=== PATIENT | female | born 1955 | race Caucasian/White ===

== ENCOUNTER → 2016-11-29 | Outpatient (CLI) | payer BC ==
[~2016-11-29] MED LIST: ATOR40TA; CITA10TA; EXEN10PE4; MTF500T
--- OUTSIDE RECORDS SUMMARY | 2016-11-29 12:40 | XMS REPORT | Continuity of Care Document ---
Author Author [facility] Organization [facility] Address Unknown Phone Unavailable Allergies Active Description Code Type Severity Reaction Onset Reported/Identified Relationship to Patient Clinical Status Yes codeine [id number] Drug Allergy Mild N/A 08/16/2009 Yes [id number] (SULFA (SULFONAMIDE ANTIBIOTICS)) [id number] (SULFA (SULFONAMIDE ANTIBIOTICS)) Mild N/A 08/16/2009 Yes hydrocodone [id number] Drug Allergy Mild N/A 08/16/2009 Yes Penicillins [id number] Drug Allergy Mild N/A 08/16/2009 Yes codeine codeine Drug Allergy Severe HIVES/ THROAT SWELLS SHUT 03/10/2015 Yes Penicillins Penicillins Drug Allergy Severe HIVES /THROAT SWELLS SHUT 03/10/2015 Yes Sulfa (Sulfonamide Antibiotics) Sulfa (Sulfonamide Antibiotics) Drug Allergy Severe HIVES /THROAT SWELLS SHUT 03/10/2015 Medications Problems Date Dx Coded Attending Type Code Diagnosis Diagnosed By 03/11/2015 LARY CHAIDEZ, CARMELO Bowie Ot 530.81 03/11/2015 LARY CHAIDEZ, CARMELO Bowie Ot 787.20 03/18/2015 LARY CHAIDEZ, CARMELO Bowie Ot 530.81 03/18/2015 LARY CHAIDEZ, CARMELO Bowie Ot 787.20 Procedures Code Description Performed By Performed On 17.42 LAPAROSCOPIC ROBOTIC ASSISTED PROCEDURE 03/14/2015 44.67 LAP PROCS FOR CREATION OF ESOPHAGOGASTRIC SPHINCT 03/14/2015 53.71 LAPAROSCOPIC REPAIR OF DIAPHRAGMATIC HRN, ABDOMINA 03/14/2015 Results Test Result Range GLUCOSE (POC) - 03/14/15 10:31 GLUCOSE (POC) 108 mg/dL 70-99 HEMOGLOBIN - 03/14/15 10:36 MEAN CELL VOLUME 89.6 fl 80.0-100.0 HEMOGLOBIN 12.5 gm/dL 12.0-16.0 METABOLIC PANEL, BASIC - 03/14/15 10:36 POTASSIUM 4.1 mmol/L 3.5-5.3 EST GFR (MDRD) > 60 mL/min > 59 ANION GAP 6 mmol/L 5-15 EST CrCl (CG) > 60 mL/min > 59 GLUCOSE 105 mg/dL 70-99 CALCIUM 8.9 mg/dL 8.5-10.1 BLOOD UREA NITROGEN 10 mg/dL 7-20 CREATININE 0.9 mg/dL 0.6-1.0 SODIUM 142 mmol/L 135-148 CHLORIDE 109 mmol/L 98-110 CARBON DIOXIDE 27 mmol/L 21-32 GLUCOSE (POC) - 03/14/15 17:18 GLUCOSE (POC) 133 mg/dL 70-99 GLUCOSE (POC) - 03/15/15 01:00 GLUCOSE (POC) 122 mg/dL 70-99 CBC - 03/15/15 05:14 MEAN CELL HGB 29.8 pg 27.0-33.0 MEAN CELL HGB CONCENTRATION 33.3 g/dL 32.0-37.0 MEAN CELL VOLUME 89.5 fl 80.0-100.0 RED BLOOD CELL 3.99 m/cumm 4.00-6.00 RED CELL DISTRIBUTION WIDTH 13.5 % 11.0- 15.6 WHITE BLOOD CELL 11.2 k/cumm 5.0-10.0 HEMOGLOBIN 11.9 gm/dL 12.0-16.0 HEMATOCRIT 35.7 % 37.0-47.0 PLATELET COUNT 207 k/cumm 150-400 RENAL FUNCTION PANEL - 03/15/15 05:14 POTASSIUM 3.9 mmol/L 3.5-5.3 EST GFR (MDRD) > 60 mL/min > 59 ANION GAP 7 mmol/L 5-15 EST CrCl (CG) > 60 mL/min > 59 GLUCOSE 135 mg/dL 70-99 CALCIUM 8.2 mg/dL 8.5-10.1 BLOOD UREA NITROGEN 9 mg/dL 7-20 CREATININE 0.8 mg/dL 0.6-1.0 SODIUM 140 mmol/L 135-148 CHLORIDE 105 mmol/L 98-110 CARBON DIOXIDE 28 mmol/L 21-32 ALBUMIN 3.0 gm/dL 3.4-5.0 PHOSPHORUS 3.4 mg/dL 2.5-4.9 GLUCOSE (POC) - 03/15/15 06:39 GLUCOSE (POC) 131 mg/dL 70-99 GLUCOSE (POC) - 03/15/15 11:41 GLUCOSE (POC) 119 mg/dL 70-99 GLUCOSE (POC) - 03/15/15 17:33 GLUCOSE (POC) 125 mg/dL 70-99 GLUCOSE (POC) - 03/16/15 06:26 GLUCOSE (POC) 137 mg/dL 70-99 CBC - 03/16/15 07:23 MEAN CELL HGB 29.2 pg 27.0-33.0 MEAN CELL HGB CONCENTRATION 32.3 g/dL 32.0-37.0 MEAN CELL VOLUME 90.3 fl 80.0-100.0 RED BLOOD CELL 3.60 m/cumm 4.00-6.00 RED CELL DISTRIBUTION WIDTH 13.6 % 11.0- 15.6 WHITE BLOOD CELL 7.3 k/cumm 5.0-10.0 HEMOGLOBIN 10.5 gm/dL 12.0-16.0 HEMATOCRIT 32.5 % 37.0-47.0 PLATELET COUNT 196 k/cumm 150-400 RENAL FUNCTION PANEL - 03/16/15 07:23 POTASSIUM 3.9 mmol/L 3.5-5.3 EST GFR (MDRD) > 60 mL/min > 59 ANION GAP 5 mmol/L 5-15 EST CrCl (CG) > 60 mL/min > 59 GLUCOSE 118 mg/dL 70-99 CALCIUM 7.9 mg/dL 8.5-10.1 BLOOD UREA NITROGEN 8 mg/dL 7-20 CREATININE 0.7 mg/dL 0.6-1.0 SODIUM 140 mmol/L 135-148 CHLORIDE 103 mmol/L 98-110 CARBON DIOXIDE 32 mmol/L 21-32 ALBUMIN 2.7 gm/dL 3.4-5.0 PHOSPHORUS 2.8 mg/dL 2.5-4.9 GLUCOSE (POC) - 03/16/15 11:35 GLUCOSE (POC) 100 mg/dL 70-99 GLUCOSE (POC) - 03/16/15 17:45 GLUCOSE (POC) 129 mg/dL 70-99 GLUCOSE (POC) - 03/17/15 05:49 GLUCOSE (POC) 129 mg/dL 70-99 GLUCOSE (POC) - 03/17/15 12:52 GLUCOSE (POC) 91 mg/dL 70-99 Encounters ACCT No. Visit Date/Time Discharge Status Pt. Type Provider Facility Loc./Unit Complaint [id number] 03/04/2015 10:20:00 2014 23:59:59 CLS Outpatient LARY CHAIDEZ, CARMELO B [facility] RAD [id number] 03/29/2014 10:10:00 2013 23:59:59 CLS Outpatient
--- NOTE | 2016-11-30 19:41 | Diagnostic Imaging Report ---
INDICATION: Digital mammogram bilateral screening. This study was compared to the prior exam of 03/29/14 and 09/11/10. At this time, there are no current complaints. The current study was also evaluated with a Computer Aided Detection (CAD) system. FINDINGS: There are scattered fibroglandular densities in both breasts which could obscure a lesion. Overall, there does not appear to have been any significant change when compared to the prior exam. No primary or secondary sign of malignancy Is noted. IMPRESSION: 1. There is no evidence of malignancy. 2. The patient should have her annual bilateral screening mammogram on schedule in November of 2017. ACR BI-RADS Category 1: Negative. Result letter will be mailed to the patient. Note: At least 10% of breast cancer is not imaged by mammography. Dictated by: Dictated on workstation # [id number]
== END ==
LOC: RAD 12:37
PROVIDERS: ATTEND Nurse Practitioner Family
DX: Z12.31 Encounter for screening mammogram for malignant neoplasm of breast (principal)
CPT/HCPCS: 77067

== ENCOUNTER 2017-09-30 09:32 | Emergency (ER) | payer BC ==
[~2017-09-30] VITALS: Ht 154.9 cm; Wt 86.2 kg
[2017-09-30] MEDS ORDERED: CIPR500T4 (09:59)
[2017-09-30] MEDS ORDERED: PHEN37.53 (09:59)
[2017-09-30] MEDS ORDERED: LACTATED RINGERS 1,000 ML IV ONE (10:28)
[2017-09-30] MEDS ORDERED: KETOROLAC 30 MG/ML VIAL IVP ONE (10:30)
[2017-09-30] MEDS ORDERED: ONDANSETRON 4 MG (ZOFRAN) ORAL DISSOLVE TAB PO ONE (10:30)
--- NOTE | 2017-09-30 10:37 | ED General ---
General Chief Complaint: Cough/Cold/Flu Symptoms Stated Complaint: FLU SYMPTOMS Nursing Triage Note: TO ROOM PER W/C REPORTS THAT LAST WEEK HAD VOMITING SAW AT [facility] WAS GIVEN MEDS THAT IS BETTER NOW. ON FRI STARTED WITH FLU SYMPTOMS. Nursing Sepsis Screen: No Definite Risk (HE [employer]Z MEDICAL STUDENT) History of Present Illness Time Seen by Provider: 10:34 Initial Comments Pt is a 62 yo female with PMH of DM who c/o URI sx for the past 7 days. Pt states she has had intermittent episodes of fevers, chills, n/v/d, R earache, congestion, sore throat, and overall body aches. Pt has tried Aleve for her pain but that has not helped and hasn't been able to eat or drink much in the past few days. Pt denies receiving a Flu Shot this year. Pt saw her PCP last week and was told she may have a UTI and was given Cipro that she has been taking for the past 4 days. Pt denies any blood in stool or vomit, CP, SOB. (HE [employer]UDENT) Allergies and Home Medications Allergies Coded Allergies: Codeine (Unverified Allergy, Mild, 08/16/09) Hydrocodone (Unverified Allergy, Mild, 08/16/09) Penicillins (Unverified Allergy, Mild, 08/16/09) Uncoded Allergies: [id number] (SULFA (SULFONAMIDE ANTIBIOTICS)) (Allergy, Mild, 08/16/09) Home Medications Atorvastatin Calcium 40 Mg Tablet, (Reported) Ciprofloxacin HCl 500 Mg Tablet, (Reported) Citalopram Hydrobromide 10 Mg Tablet, (Reported) Exenatide 10 Mcg/0.04 Pen.injctr, (Reported) Metformin Hcl 500 Mg Tablet, (Reported) Phentermine HCl 37.5 Mg Tablet, (Reported) Constitutional: chills, diaphoresis, fever, malaise EENTM: ear pain (R), nose congestion, throat pain Respiratory: cough, No hemoptysis, phlegm, No short of breath, No wheezing Cardiovascular: no symptoms reported, No chest pain, No edema, No palpitations Gastrointestinal: abdominal pain (diffuse) Genitourinary: decreased output, No hematuria, No hesitancy Musculoskeletal: no symptoms reported Skin: no symptoms reported Psychiatric/Neurological: No Symptoms Reported Hematologic/Lymphatic: No Symptoms Reported Immunological/Allergic: no symptoms reported ([employer]UDENT) All Other Systems Reviewed Negative Unless Noted: Yes (Negative excepted noted.) (HE [employer] MEDICAL STUDENT) Past Hybvnju-Ianiyx-Kmvegw Hx Patient Social History Alcohol Use: Denies Use Recreational Drug Use: No Smoking Status: Never a Smoker Recent Foreign Travel: No Contact w/Someone Who Travel: No Recent Infectious Disease Expo: No (HE [employer] MEDICAL STUDENT) Surgeries History of Surgeries: No Surgeries: Gallbladder (HE [employer] MEDICAL STUDENT) Cardiovascular History of Cardiac Disorders: No (HE [employer]ICAL STUDENT) Musculoskeletal History of Musculoskeletal Dis: No (HE [employer] STUDENT) Endocrine History of Endocrine Disorders: Yes Endocrine Disorders: Diabetes, Non-Insulin dep ([employer]UDENT) Physical Exam Vital Signs Vital Sign - Last 12Hours 09/30/17 09:49 Temp 100.4 Pulse 100 B/P (MAP) 150/89 (109) Pulse Ox 98 O2 Delivery Room Air (NICK ALBARADO) Vital Signs Capillary Refill : Less Than 3 Seconds (HE [employer] STUDENT) General Appearance: Other (Ill in appearance, tearful) HEENT: PERRL/EOMI, Pharyngeal Erythema, TM Abnormal (R), Other (Dry mucous membranes) Neck: Supple, Lymphadenopathy (L), Lymphadenopathy (R) Respiratory: Lungs Clear, Normal Breath Sounds, No Accessory Muscle Use Cardiovascular: Regular Rate, Rhythm, No Edema, No Murmur Gastrointestinal: Normal Bowel Sounds, No Organomegaly, Soft, Tenderness ( Diffuse, especially suprapubic) Rectal: Deferred Back: Normal Inspection Extremity: Normal Capillary Refill, Normal Inspection, No Calf Tenderness Neurologic/Psychiatric: Alert, Oriented x3 Skin: Damp, Diaphoresis (HE [employer] STUDENT) Focused Exam Evaluation Lactate Level Laboratory Tests 09/30/17 11:16: Lactic Acid Level 1.57 (NICK ALBARADO) Lactic Acid Level Laboratory Tests Test 09/30/17 11:16 Lactic Acid Level 1.57 MMOL/L (0.50-2.00) (NICK ALBARADO) Progress/Results/Core Measures Suspected Sepsis Recent Fever Within 48 Hours: No Infection Criteria Present: None New/Unexplained Altered Menta: No Sepsis Screen: No Definite Risk Sepsis Diagnosis: SIRS Temperature:100.4 Pulse: 100 Respiratory Rate: Blood Pressure 150 /89 Mean: 109 (HE [employer] MED[employer] STUDENT) Results/Orders Lab Results Laboratory Tests Test 09/30/17 11:05 09/30/17 11:16 09/30/17 12:15 Range/Units Group A Streptococcus Screen NEGATIVE NEGATIVE White Blood Count 2.8 L 4.3-11.0 10^3/uL Red Blood Count 4.20 L 4.35-5.85 10^6/uL Hemoglobin 13.3 11.5-16.0 G/DL Hematocrit 42 35-52 % Mean Corpuscular Volume 99 80-99 FL Mean Corpuscular Hemoglobin 32 25-34 PG Mean Corpuscular Hemoglobin Concent 32 32-36 G/DL Red Cell Distribution Width 12.9 10.0-14.5 % Platelet Count 190 130-400 10^3/uL Mean Platelet Volume 10.4 7.4-10.4 FL Neutrophils (%) (Auto) 52 42-75 % Lymphocytes (%) (Auto) 27 12-44 % Monocytes (%) (Auto) 20 H 0-12 % Eosinophils (%) (Auto) 0 0-10 % Basophils (%) (Auto) 0 0-10 % Neutrophils # (Auto) 1.5 L 1.8-7.8 X 10^3 Lymphocytes # (Auto) 0.8 L 1.0-4.0 X 10^3 Monocytes # (Auto) 0.6 0.0-1.0 X 10^3 Eosinophils # (Auto) 0.0 0.0-0.3 10^3/uL Basophils # (Auto) 0.0 0.0-0.1 10^3/uL Neutrophils % (Manual) 51 % Lymphocytes % (Manual) 26 % Monocytes % (Manual) 16 % Eosinophils % (Manual) 0 % Basophils % (Manual) 0 % Band Neutrophils 7 % Blood Morphology Comment NORMAL Sodium Level 139 135-145 MMOL/L Potassium Level 3.8 3.6-5.0 MMOL/L Chloride Level 102 98-107 MMOL/L Carbon Dioxide Level 25 21-32 MMOL/L Anion Gap 12 5-14 MMOL/L Blood Urea Nitrogen 11 7-18 MG/DL Creatinine 0.80 0.60-1.30 MG/DL Estimat Glomerular Filtration Rate > 60 BUN/Creatinine Ratio 14 Glucose Level 93 70-105 MG/DL Lactic Acid Level 1.57 0.50-2.00 MMOL/L Calcium Level 9.0 8.5-10.1 MG/DL Magnesium Level 1.5 L 1.8-2.4 MG/DL Total Bilirubin 0.4 0.1-1.0 MG/DL Aspartate Amino Transf (AST/SGOT) 26 5-34 U/L Alanine Aminotransferase (ALT/SGPT) 21 0-55 U/L Alkaline Phosphatase 80 40-136 U/L Total Protein 6.5 6.4-8.2 GM/DL Albumin 3.9 3.2-4.5 GM/DL Urine Color YELLOW Urine Clarity CLEAR Urine pH 6.5 5-9 Urine Specific [place] 1.015 L 1.016-1.022 Urine Protein 2+ H NEGATIVE Urine Glucose (UA) NEGATIVE NEGATIVE Urine Ketones NEGATIVE NEGATIVE Urine Nitrite NEGATIVE NEGATIVE Urine Bilirubin 1+ H NEGATIVE Urine Urobilinogen NORMAL NORMAL MG/DL Urine Leukocyte Esterase 2+ H NEGATIVE Urine RBC (Auto) 1+ H NEGATIVE Urine RBC 2-5 H /HPF Urine WBC 2-5 /HPF Urine Squamous Epithelial Cells 10-25 H /HPF Urine Crystals NONE /LPF Urine Bacteria TRACE /HPF Urine Casts PRESENT /LPF Urine Hyaline Casts 10-25 H /LPF Urine Mucus SMALL H /LPF Urine Culture Indicated NO (NICK ALBARADO) Micro Results Microbiology 09/30/17 Influenza Types A,B Antigen (ANNE) - Final, Complete (NICK ALBARADO) My Orders Orders - NICK ALBARADO Ondansetron Oral Dissolve Tab (Zofran (09/30/17 10:30) Cbc With Automated Diff (09/30/17 10:28) Comprehensive Metabolic Panel (09/30/17 10:28) Lactic Acid Analyzer (09/30/17 10:28) Magnesium (09/30/17 10:28) Rapid Strep A Screen (09/30/17 10:28) Ua Culture If Indicated (09/30/17 10:28) Chest Pa/Lat (2 View) (09/30/17 10:28) Saline Lock/Iv-Start (09/30/17 10:28) Lactated Ringers (Lr 1000 Ml Iv Solution (09/30/17 10:28) Ketorolac Injection (Toradol Injection) (09/30/17 10:30) Influenza A And B Antigens (09/30/17 10:49) Manual Differential (09/30/17 11:16) (NICK ALBARADO) Medications Given in ED Current Medications Medications Dose Ordered Sig/Amanda Route Start Time Stop Time Status Last Admin Dose Admin Ketorolac Tromethamine 15 mg ONCE ONCE IVP 09/30/17 10:30 09/30/17 10:34 DC 09/30/17 11:27 15 MG Lactated Ringer's 1,000 ml @ 0 mls/hr Q0M ONCE IV 09/30/17 10:28 09/30/17 10:34 DC 09/30/17 11:28 1,000 MLS/HR Ondansetron HCl 4 mg ONCE ONCE PO 09/30/17 10:30 09/30/17 10:34 DC 09/30/17 11:27 4 MG (NICK ALBARADO) Vital Signs/I&O Vital Sign - Last 12Hours 09/30/17 09:49 Temp 100.4 Pulse 100 B/P (MAP) 150/89 (109) Pulse Ox 98 O2 Delivery Room Air (NICK ALBARADO) Vital Signs/I&O Capillary Refill : Less Than 3 Seconds (HE [employer] MEDICAL STUDENT) Blood Pressure Mean: 109 Progress Note : Time: 12:04 Progress Note Fluid is positive with explain most of her symptoms. Patient's body aches, nausea and chills are improved however she still having quite a bit of suprapubic pain so we will go ahead and obtain a urinalysis. Patient's white cell count of 2.5 is not explained by any medicines she is on. She does take some kind of an NSAID for osteoarthritis but no immunosuppressants. We are getting some fluids put into her and her lactate was not elevated so I still think she'll be okay to go home and recover. (NICK ALBARADO) Diagnostic Imaging Diagonstic Imaging: Xray Plain Films/CT/US/NM/MRI: chest Comments [facility]. [place], [place] NAME: CLARIBEL RODRIGUEZ [facility] REC#: [id number] PT STATUS: REG ER : 1955 PHYSICIAN: NICK ALBARADO MD ADMIT DATE: 09/30/17/ER Draft Date of Exam:09/30/17 CHEST PA/LAT (2 VIEW) INDICATION: Lower respiratory infection PA and lateral chest Heart size and pulmonary vascularity are normal. Lungs are clear. There are no effusions or pneumothoraces. IMPRESSION: Negative chest. Dictated on workstation # [id number] Dict: 09/30/17 1142 Trans: 09/30/17 1152 [facility] [id number] Interpreted by: PADDY BRADY MD Electronically signed by: Reviewed: Reviewed by Me (NICK ALBARADO) Departure Impression Impression: Primary Impression: Influenza Disposition: HOME, SELF-CARE Condition: Improved Departure-Patient Inst. Decision time for Depature: 12:57 (NICK ALBARADO) Referrals: POLLO MAY MD (PCP/Family) Primary Care Physician Patient Instructions: Flu, Adult (DC) Add. Discharge Instructions: Drink plenty of fluids you have body aches, chills or fevers take 1000 mg of Tylenol every 8 hours and or 800 mg ibuprofen every 8 hours. You can use vapor rubs such as Vicks or Mentholatum and humidifiers. Get some rest and plan on going back to work in a week. If you're not feeling better next Saturday follow- up with your primary care doctor. If you begin to have painful urination follow- up with her primary care doctor. You may discontinue the ciprofloxacin at this time. If you have nausea you can take one tablet of Zofran place under tongue allowed to absorb every 6 hours as needed. The prescription will be sent to pharmacy in [place], [place]. All discharge instructions reviewed with patient and/or family. Voiced understanding. Scripts Ondansetron (Zofran Odt) 4 Mg Tab.rapdis 4 MG PO Q6H Y for NAUSEA/VOMITING-1ST LINE, #14 TAB 0 Refills Prov: NICK ALBARADO 09/30/17 Work/School Note: Work Release Form Date Seen in the Emergency Department: Sep 30, 2017 Return to Work: Oct 07, 2017 Restrictions: No Restrictions Copy Copies To 1: POLLO MAY MD, [employer] STUDENT Sep 30, 2017 10:37 NICK ALBARADO Sep 30, 2017 12:11
[2017-09-30 11:31] LABS: HEMATOCRIT 42 % (35-52); HEMOGLOBIN 13.3 G/DL (11.5-16.0); MEAN CORPUSCULAR HEMOGLOBIN 32 PG (25-34); WHITE BLOOD COUNT 2.8 10^3/uL (4.3-11.0)
[2017-09-30 11:32] LABS: BASOPHILS % (AUTO) 0 % (0-10); EOSINOPHILS % (AUTO) 0 % (0-10); LYMPHOCYTES # (AUTO) 0.8 X 10^3 (1.0-4.0); LYMPHOCYTES % (AUTO) 27 % (12-44); MEAN CORPUSCULAR HGB CONC 32 G/DL (32-36); MEAN CORPUSCULAR VOLUME 99 FL (80-99); MEAN PLATELET VOLUME 10.4 FL (7.4-10.4); MONOCYTES # (AUTO) 0.6 X 10^3 (0.0-1.0); MONOCYTES % (AUTO) 20 % (0-12); NEUTROPHILS # (AUTO) 1.5 X 10^3 (1.8-7.8); NEUTROPHILS % (AUTO) 52 % (42-75); PLATELET COUNT 190 10^3/uL (130-400); RED CELL DISTRIBUTION WIDTH 12.9 % (10.0-14.5)
[2017-09-30 11:48] LABS: ALANINE AMINOTRANSFERASE 21 U/L (0-55); ALBUMIN 3.9 GM/DL (3.2-4.5); ALKALINE PHOSPHATASE 80 U/L (40-136); BILIRUBIN,TOTAL 0.4 MG/DL (0.1-1.0); BUN/CREATININE RATIO 14; CARBON DIOXIDE 25 MMOL/L (21-32); CHLORIDE 102 MMOL/L (98-107); GFR ESTIMATED > 60; GLUCOSE 93 MG/DL (70-105); MAGNESIUM 1.5 MG/DL (1.8-2.4); POTASSIUM 3.8 MMOL/L (3.6-5.0); SODIUM 139 MMOL/L (135-145); TOTAL PROTEIN 6.5 GM/DL (6.4-8.2)
--- NOTE | 2017-09-30 11:53 | Diagnostic Imaging Report ---
INDICATION: Lower respiratory infection PA and lateral chest Heart size and pulmonary vascularity are normal. Lungs are clear. There are no effusions or pneumothoraces. IMPRESSION: Negative chest. Dictated by: Dictated on workstation # [id number]
[2017-09-30 12:04] LABS: BAND NEUTROPHILS 7 %; BASOPHILS % (MANUAL) 0 %; EOSINOPHILS % (MANUAL) 0 %; LYMPHOCYTES % (MANUAL) 26 %; MONOCYTES % (MANUAL) 16 %; NEUTROPHILS % (MANUAL) 51 %; RBC MORPH NORMAL
[2017-09-30 12:23] LABS: CLARITY,URINE CLEAR; COLOR,URINE YELLOW; GLUCOSE, URINE (UA) NEGATIVE (NEGATIVE); KETONES,URINE NEGATIVE (NEGATIVE); LEUKOCYTE ESTERASE ,URINE 2+ (NEGATIVE); NITRITE,URINE NEGATIVE (NEGATIVE); PH,URINE 6.5 (5-9); PROTEIN,URINE 2+ (NEGATIVE); UROBILINOGEN,URINE NORMAL (NORMAL)
[2017-09-30 12:51] LABS: BACTERIA,URINE TRACE /HPF
[2017-09-30 12:52] LABS: BILIRUBIN,URINE 1+ (NEGATIVE)
[2017-09-30] MEDS ORDERED: ONDA4TAB8 PO (13:01)
[2017-09-30 13:04] VITALS: BP 132/69
== END 2017-09-30 13:08 | disposition home or self-care (01) ==
LOC: EDUNIT# 09:32 → ER 09:33
DX: J11.1 Influenza due to unidentified influenza virus with other respiratory manifestations (principal); E11.9 Type 2 diabetes mellitus without complications; Z79.84 Long term (current) use of oral hypoglycemic drugs
CPT/HCPCS: 36415; 71046; 80053; 81000; 83605; 83735; 85007; 85027; 87430; 87804; 96374